=== PATIENT | female | born 1990 | race African-American/Black ===

== ENCOUNTER 2023-03-31 07:09 | Emergency (ER) | payer MEDICAID, SELFPAY ==
[2023-03-31 07:16] VITALS: BP 134/71; PULSE 73; RESP 18; TEMP 37.2; O2SAT 97; BMI 43.9
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
[2023-03-31 07:53] VITALS: BP 116/70; PULSE 81; O2SAT 98
== END 2023-03-31 07:54 | disposition home or self-care (01) ==
PROVIDERS: Emergency Provider Emergency Medicine
DX: S80.02XA Contusion of left knee, initial encounter (principal); V89.2XXA Person injured in unspecified motor-vehicle accident, traffic, initial encounter
CPT/HCPCS: 73562; 99283

== ENCOUNTER 2023-04-15 17:47 | Emergency (ER) | payer BC, MEDICAID, SELFPAY ==
[2023-04-15 17:49] VITALS: BP 152/97; PULSE 120; RESP 24; TEMP 36.9; O2SAT 96; BMI 42.0
--- NOTE | 2023-04-15 18:00 | XRR_ITS ---
PROCEDURE INFORMATION: Exam: XR Chest Exam date and time: 04/15/2023 6:21 PM Age: 33 years old Clinical indication: Dyspnea; Patient HX: Lt side facial swelling; Neck tenderness/swelling; SOB onset today TECHNIQUE: Imaging protocol: Radiologic exam of the chest. Views: 1 view. COMPARISON: No relevant prior studies available. FINDINGS: Lungs: Peribronchial thickening. No consolidation. Pleural spaces: Unremarkable. No pleural effusion. No pneumothorax. Heart/Mediastinum: Unremarkable. No cardiomegaly. Bones/joints: Unremarkable. XR/XR chest 1V portable [id number] IMPRESSION: Peribronchial thickening suggestive of an infectious or inflammatory bronchitis.
[2023-04-15 18:23] LABS: Basophils # 0.1 10^3/uL (0.0-0.1); Basophils % 0.5 %; Eosinophils # 0.3 10^3/uL (0.0-0.8); Eosinophils % 2.9 %; Hematocrit 41.7 % (36-47); Lymphocytes # 2.5 10^3/uL (0.8-4.8); Lymphocytes % 25.1 %; Mean Corpuscular HGB Conc 33.3 g/dL (30-55); Mean Corpuscular Hemoglobin 28.6 pg (27-33); Mean Corpuscular Volume 85.8 fl (85-98); Monocytes # 0.7 10^3/uL (0.2-0.9); Monocytes % 7.1 %; Neutrophils # 6.46 10^3/uL (1.8-7.7); Neutrophils % 64.2 %; Nucleated Red Blood Cells % 0 %; Platelet Count 270 10^3/cmm (157-399); Red Blood Count 4.86 10^6/uL (3.85-5.65); Red Cell Distribution Width 12.8 % (12.1-15.1); White Blood Count 10.07 10^3/uL (3.29-11.43)
[2023-04-15 18:40] VITALS: BP 135/96; PULSE 68; RESP 15; O2SAT 99
[2023-04-15 18:40] LABS: Alanine Aminotransferase 16 U/L (0-33); Albumin Level 4.2 g/dL (3.5-5.2); Alkaline Phosphatase 72 U/L (35-105); Anion Gap 15.8 (5-19); Aspartate Amino Transferase 10 U/L (0-32); Blood Urea Nitrogen 19 mg/dL (6-20); Calcium 9.5 mg/dL (8.5-10.5); Carbon Dioxide 25 mmol/L (22-29); Chloride 103 mmol/L (98-107); Globulin 3.5 g/dL (1.3-4.6); Glomerular Filtration Rate 101.2 mL/min (90-130); Glucose 91 mg/dL (65-115); Osmolality Calculated 292 mOsm/kg (285-295); Potassium 3.8 mmol/L (3.5-5.1); Sodium 140 mmol/L (136-145); Total Bilirubin 0.2 mg/dL (0.15-1.2); Total Protein 7.7 g/dL (6.6-8.7)
--- NOTE | 2023-04-15 19:21 | CTR_ITS ---
PROCEDURE INFORMATION: Exam: CT Neck With Contrast Exam date and time: 04/15/2023 8:05 PM Age: 33 years old Clinical indication: Dysphagia / difficulty swallowing and other: Left facial swelling; Patient HX: Left facial swelling with dysphagia; Additional info: Pain, painful swallowing, difficulty swallowing, facial swelling- TECHNIQUE: Imaging protocol: Computed tomography of the neck with contrast. Radiation optimization: All CT scans at this facility use at least one of these dose optimization techniques: automated exposure control; mA and/or kV adjustment per patient size (includes targeted exams where dose is matched to clinical indication); or iterative reconstruction. Contrast material: OMNI 350; Contrast volume: 100 ml; Contrast route: INTRAVENOUS (IV); COMPARISON: CR (CHEST, ) 04/15/2023 6:21 PM RADIATION DOSE METRICS: Total DLP (mGy-cm): 594.83 FINDINGS: Paranasal sinuses: Mild left maxillary sinus mucosal thickening. Dental: Multiple carious teeth bilaterally and left maxillary premolar periapical lucencies, the 2nd showing anterior bony disruption and thinning of the 1st without definite disruption. No clear communication with the maxillary sinus. Pharynx: Unremarkable. No significant tonsillar enlargement. Larynx: Unremarkable. Epiglottis is normal. Prevertebral and retropharyngeal spaces: Unremarkable. Salivary glands: Normal. Glands are normal in size. Thyroid: Normal. No enlarged or calcified nodules. Lymph nodes: Unremarkable. No lymphadenopathy. Trachea: Visualized trachea is unremarkable. Lungs: Unremarkable as visualized. Bones/joints: Unremarkable. No acute fracture. Soft tissues: Asymmetric left facial soft tissue swelling with subcutaneous graying/stranding and mild dermal thickening as well as infiltration of the propulsion engineer space. Just superficial to the left maxillary 2nd premolar periapical lucency that shows focal disruption anteriorly is a 1.3 cm hypodense collection with thickened soft tissue rim, axial image 27 of series 4 and sagittal image [address]/CT neck w con* [id number] IMPRESSION: 1. Constellation of findings favored to represent odontogenic infection involving the left propulsion engineer space and superficial soft tissues with suggested 1.3 cm premaxillary abscess arising from left maxillary 2nd premolar. 2. Mild left maxillary sinus disease. No communication with above periapical lucencies to suggest odontogenic etiology.
[2023-04-15] MEDS: iohexol 350 mg/mL 500 mL Btl (per mL) IV (20:10)
[2023-04-15 20:30] VITALS: BP 141/103; PULSE 73; RESP 18; O2SAT 98
[2023-04-15] MEDS: metoclopramide 5 mg/mL SDV 2 mL 10 MG IVP (20:33)
[2023-04-15] MEDS: morphine 4 mg/mL SDV 1 mL IVP (20:36)
--- NOTE | 2023-04-15 20:40 | ED_ITS ---
Documented by User: RICHELLE Vargas 04/16/23 01:38 HPI - SOB/Dyspnea 2 General: Chief Complaint: Shortness of Breath/Dyspnea Stated Complaint: sob, left side face swollen Time Seen by Provider: 04/15/23 18:47 Source: patient Mode of arrival: ambulatory Limitations: no limitations History of Present Illness: HPI Narrative: Patient presents to the emergency department today for evaluation treatment of acute swelling of her left face with increased pain and tightness in her upper throat. Patient reports that for the last 2 days she has had noticeable increase in swelling and redness developing to the left cheek area. Patient states that today she developed some tightness in her upper neck and felt like she was having difficulty breathing. Patient does have some poor dentition to the left upper jawline including a broken tooth but, has never had anything like this happen before. She denies any purulent drainage from the left nasal passage. She denies any left ear pain. She does admit to feeling like her throat is tight when she tries to swallow but, has been tolerating oral intake and salivary secretions. Review of Systems 2 General: Reports: 10 or more systems reviewed and unremarkable except in HPI and below [facility] ED 2 Female Reproductive History: Date of last menstrual period: 03/05/23 Physical Exam 2 Const: COMMON NORMALS: no acute distress, patient oriented x3 and alert HENMT: OTHER: Left TM is nonerythematous. No bulging. EAC is clear without purulent accumulation or swelling. No swelling behind the left ear. Patient is tender to the left upper and lower jaw. Patient has induration noted to the left maxillary region with erythema noted to the skin as well. No signs of active draining. Nasal passage on the left side is somewhat occluded but no signs of any drainage. Retropharynx is patent. Mucous membranes are moist. Patient has obvious broken tooth noted to the left upper jawline without signs of any active draining appreciated. Eye: COMMON NORMALS: Equal, round and reactive pupils present, EOMs intact bilaterally and conjunctivae normal CONJUNCTIVA: Yes conjunctivae normal P UPIL: Yes Equal, round and reactive pupils present OTHER: Patient has full range of motion to the EOMs without signs of entrapment. Neck/C-Spine: COMMON NORMALS: no JVD Lymph: LYMPHATIC: no lymphadenopathy noted Resp: COMMON NORMALS: normal respiratory effort, No retractions and No use of accessory muscles Cardio: COMMON NORMALS: no JVD and regular rate RATE: regular rate : COMMON NORMALS: Yes no CVA tenderness BLADDER/KIDNEY EXAM: Yes no CVA tenderness Back/Pelvis: COMMON NORMALS: no CVA tenderness, thoracic and lumbar spine normal to inspection and thoraco-lumbar ROM normal Extremity: COMMON NORMALS: normal to inspection, full ROM and no pedal edema Neuro: COMMON NORMALS: patient oriented x3 SENSORIUM/ORIENTATION: Yes alert Skin: COMMON NORMALS: no rashes or lesions noted and turgor normal GENERAL SKIN EXAM: no rashes or lesions noted and turgor normal Course 2 Vital Signs: Vital signs: Vital Signs Temperature 98.5 F 04/15/23 17:49 Pulse Rate 73 04/15/23 20:30 Respiratory Rate 18 04/15/23 20:30 Blood Pressure 141/103 04/15/23 20:30 Pulse Oximetry 98 04/15/23 20:30 Oxygen Delivery Me thod Room Air 04/15/23 20:30 MDM - SOB/Dyspnea Medical Decision Making Patient presents to the ER today for swelling and redness and tenderness to his left cheek. Given the patient's complaints we did perform a CT of her face and neck. Radiology indicated no concerns of any airway obstruction or deep tissue infection of the neck. However, patient does have findings of a deep abscess stemming from the left maxillary second premolar. I spoke with Dr. Brand. Patient will most likely have to have evaluation by a dentist for the molar removal. It is possible they may want to send her onto a oral surgeon but he indicated patient could most likely start with a local dentist. Patient was treated with antibiotic here in the emergency department here [facility]. She was given an acute dosing of pain medication as well. Prescriptions for continued antibiotic therapy, NSAID, and a probiotic were sent to her pharmacy to be picked up and continued in the morning. Discussed with her the importance of getting in with a dentist as the location of the abscess seems to be due to a dental infection. However, return precautions were given including any issues regarding breathing or swallowing. Patient verbalized understanding and agreement to treatment plan. Differential Diagnosis Unlikely acute exacerbation of chronic obstructive airways disease, congestive heart failure, community acquired pneumonia, asthma with exacerbation or pulmonary embolism Lab Data 04/15/23 18:17 04/15/23 18:17 Labs/Radiology: Radiology Impressions Chest X-Ray 04/15/23 18:00 IMPRESSION: Peribronchial thickening suggestive of an infectious or inflammatory bronchitis. Neck CT 04/15/23 19:21 IMPRESSION: 1. Constellation of findings favored to represent odontogenic infection involving the left greige goods inspector space and superficial soft tissues with suggested 1.3 cm premaxillary abscess arising from left maxillary 2nd premolar. 2. Mild left maxillary sinus disease. No communication with above periapical lucencies to suggest odontogenic etiology. Laboratory Results WBC 10.07 10^3/uL (3.29-11.43) 04/15/23 18:17 RBC 4.86 10^6/uL (3.85-5.65) 04/15/23 18:17 Hgb 13.90 g/dL (11.27-16.99) 04/15/23 18:17 Hct 41.7 % (36-47) 04/15/23 18:17 MCV 85.8 fl (85-98) 04/15/23 18:17 MCH 28.6 pg (27-33) 04/15/23 18:17 MCHC 33.3 g/dL (30-55) 04/15/23 18:17 RDW 12.8 % (12.1-15.1) 04/15/23 18:17 Plt Count 270 10^3/cmm (157-399) 04/15/23 18:17 MPV 10.0 fL (7.4-10.4) 04/15/23 18:17 Neut % (Auto) 64.2 % 04/15/23 18:17 Lymph % (Auto) 25.1 % 04/15/23 18:17 Juncos % (Auto) 7.1 % 04/15/23 18:17 Eos % (Auto) 2.9 % 04/15/23 18:17 Baso % (Auto) 0.5 % 04/15/23 18:17 Neut # (Auto) 6.46 10^3/uL (1.8-7.7) 04/15/23 18:17 Lymph # (Auto) 2.5 10^3/uL (0.8-4.8) 04/15/23 18:17 Juncos # (Auto) 0.7 10^3/uL (0.2-0.9) 04/15/23 18:17 Eos # (Auto) 0.3 10^3/uL (0.0-0.8) 04/15/23 18:17 Baso # (Auto) 0.1 10^3/uL (0.0-0.1) 04/15/23 18:17 Nucleated RBC % (auto) 0 % 04/15/23 18:17 Nucleated RBCs # 0.0 /100WBC 04/15/23 18:17 Sodium 140 mmol/L (136-145) 04/15/23 18:17 Potassium 3.8 mmol/L (3.5-5.1) 04/15/23 18:17 Chloride 103 mmol/L (98-107) 04/15/23 18:17 Carbon Dioxide 25 mmol/L (22-29) 04/15/23 18:17 Anion Gap 15.8 (5-19) 04/15/23 18:17 BUN 19 mg/dL (6-20) 04/15/23 18:17 Creatinine 0.8 mg/dL (0.5-0.9) 04/15/23 18:17 GFR Calculation 101.2 mL/min (90-130) 04/15/23 18:17 Glucose 91 mg/dL (65-115) 04/15/23 18:17 Calculated Osmolality 292 mOsm/kg (285-295) 04/15/23 18:17 Calcium 9.5 mg/dL (8.5-10.5) 04/15/23 18:17 Total Bilirubin 0.2 mg/dL (0.15-1.2) 04/15/23 18:17 AST 10 U/L (0-32) 04/15/23 18:17 ALT 16 U/L (0-33) 04/15/23 18:17 Alkaline Phosphatase 72 U/L (35-105) 04/15/23 18:17 Total Protein 7.7 g/dL (6.6-8.7) 04/15/23 18:17 Albumin 4.2 g/dL (3.5-5.2) 04/15/23 18:17 Globulin 3.5 g/dL (1.3-4.6) 04/15/23 18:17 All radiology interpretation(s) finalized by discharge Discharge Plan Discharge Patient Disposition: Home Clinical Impression: Abscess, dental Sinusitis, acute maxillary Qualifiers: Recurrence: not specified as recurrent Qualified Code(s): J01.00 - Acute maxillary sinusitis, unspecified Condition: Stable Prescriptions: New clindamycin HCl 300 mg capsule 300 mg PO Q6H 10 Days Qty: 40 0RF Bifidobacterium infantis 4 mg capsule 4 mg PO DAILY Qty: 14 0RF naproxen 500 mg tablet 500 mg PO BID PRN (Reason: pain) Qty: 20 0RF Discharge Orders: Discharge ED (Routine); Ordered 04/15/23 Ordered By: Bren Lima Discharge Diet: Advance as tolerated Discharge Activity: Increase activity as tolerated Patient Instructions: Dental Abscess (ED) Activity Restrictions/Additional Instructions: Examination today reveals a deep abscess up against the root of your left upper molar causing the swelling in your cheek. You do have signs of a sinus infection on that side as well but, your acute symptoms are due to the dental infection. The scan of your throat shows no swelling or concerns for occlusion. We started you on antibiotics tonight. I sent a prescription for continued antibiotics to the pharmacy on your behalf as well as medication to help with pain. The antibiotics provided to you are very strong and can cause issues with loose stools/diarrhea. I have also provided you a prescription for a probiotic to be taken while you are on the clindamycin to help prevent GI upset and loose stool. It will be essential that you get into see a dentist as soon as possible as the antibiotic can help prevent the spread of the infection but, may not fully treat the abscess. We recommend seeing a dentist for definitive management and care of your dental infection. If for any reason you continue to have facial swelling, begin having any visual changes, develop fever, or are unable to swallow liquids including your own saliva you need to return back here to the emergency department. Coding Level of Care Code ED Derrick Boat Operator for Chg Fwd Documented by User: Andrea Brand, 04/16/23 14:37 HPI - SOB/Dyspnea 2 General: Chief Complaint: Shortness of Breath/Dyspnea Stated Complaint: sob, left side face swollen Time Seen by Provider: 04/15/23 18:47 Course 2 Vital Signs: Vital signs: Vital Signs Temperature 98.5 F 04/15/23 17:49 Pulse Rate 73 04/15/23 20:30 Respiratory Rate 18 04/15/23 20:30 Blood Pressure 141/103 04/15/23 20:30 Pulse Oximetry 98 04/15/23 20:30 Oxygen Delivery Me thod Room Air 04/15/23 20:30 MDM - SOB/Dyspnea Medical Decision Making Patient presents to the ER today for swelling and redness and tenderness to his left cheek. Given the patient's complaints we did perform a CT of her face and neck. Radiology indicated no concerns of any airway obstruction or deep tissue infection of the neck. However, patient does have findings of a deep abscess stemming from the left maxillary second premolar. I spoke with Dr. Brand. Patient will most likely have to have evaluation by a dentist for the molar removal. It is possible they may want to send her onto a oral surgeon but he indicated patient could most likely start with a local dentist. Patient was treated with antibiotic here in the emergency department here [facility]. She was given an acute dosing of pain medication as well. Prescriptions for continued antibiotic therapy, NSAID, and a probiotic were sent to her pharmacy to be picked up and continued in the morning. Discussed with her the importance of getting in with a dentist as the location of the abscess seems to be due to a dental infection. However, return precautions were given including any issues regarding breathing or swallowing. Patient verbalized understanding and agreement to treatment plan. This patient was originally seen by Mrs. Clarence PA-C. I agree with her history, evaluation, and management. Lab Data 04/15/23 18:17 04/15/23 18:17 Labs/Radiology: Radiology Impressions Chest X-Ray 04/15/23 18:00 IMPRESSION: Peribronchial thickening suggestive of an infectious or inflammatory bronchitis. Neck CT 04/15/23 19:21 IMPRESSION: 1. Constellation of findings favored to represent odontogenic infection involving the left greige goods inspector space and superficial soft tissues with suggested 1.3 cm premaxillary abscess arising from left maxillary 2nd premolar. 2. Mild left maxillary sinus disease. No communication with above periapical lucencies to suggest odontogenic etiology. Laboratory Results WBC 10.07 10^3/uL (3.29-11.43) 04/15/23 18:17 RBC 4.86 10^6/uL (3.85-5.65) 04/15/23 18:17 Hgb 13.90 g/dL (11.27-16.99) 04/15/23 18:17 Hct 41.7 % (36-47) 04/15/23 18:17 MCV 85.8 fl (85-98) 04/15/23 18:17 MCH 28.6 pg (27-33) 04/15/23 18:17 MCHC 33.3 g/dL (30-55) 04/15/23 18:17 RDW 12.8 % (12.1-15.1) 04/15/23 18:17 Plt Count 270 10^3/cmm (157-399) 04/15/23 18:17 MPV 10.0 fL (7.4-10.4) 04/15/23 18:17 Neut % (Auto) 64.2 % 04/15/23 18:17 Lymph % (Auto) 25.1 % 04/15/23 18:17 Juncos % (Auto) 7.1 % 04/15/23 18:17 Eos % (Auto) 2.9 % 04/15/23 18:17 Baso % (Auto) 0.5 % 04/15/23 18:17 Neut # (Auto) 6.46 10^3/uL (1.8-7.7) 04/15/23 18:17 Lymph # (Auto) 2.5 10^3/uL (0.8-4.8) 04/15/23 18:17 Juncos # (Auto) 0.7 10^3/uL (0.2-0.9) 04/15/23 18:17 Eos # (Auto) 0.3 10^3/uL (0.0-0.8) 04/15/23 18:17 Baso # (Auto) 0.1 10^3/uL (0.0-0.1) 04/15/23 18:17 Nucleated RBC % (auto) 0 % 04/15/23 18:17 Nucleated RBCs # 0.0 /100WBC 04/15/23 18:17 Sodium 140 mmol/L (136-145) 04/15/23 18:17 Potassium 3.8 mmol/L (3.5-5.1) 04/15/23 18:17 Chloride 103 mmol/L (98-107) 04/15/23 18:17 Carbon Dioxide 25 mmol/L (22-29) 04/15/23 18:17 Anion Gap 15.8 (5-19) 04/15/23 18:17 BUN 19 mg/dL (6-20) 04/15/23 18:17 Creatinine 0.8 mg/dL (0.5-0.9) 04/15/23 18:17 GFR Calculation 101.2 mL/min (90-130) 04/15/23 18:17 Glucose 91 mg/dL (65-115) 04/15/23 18:17 Calculated Osmolality 292 mOsm/kg (285-295) 04/15/23 18:17 Calcium 9.5 mg/dL (8.5-10.5) 04/15/23 18:17 Total Bilirubin 0.2 mg/dL (0.15-1.2) 04/15/23 18:17 AST 10 U/L (0-32) 04/15/23 18:17 ALT 16 U/L (0-33) 04/15/23 18:17 Alkaline Phosphatase 72 U/L (35-105) 04/15/23 18:17 Total Protein 7.7 g/dL (6.6-8.7) 04/15/23 18:17 Albumin 4.2 g/dL (3.5-5.2) 04/15/23 18:17 Globulin 3.5 g/dL (1.3-4.6) 04/15/23 18:17 Discharge Plan Discharge Patient Disposition: Home Clinical Impression: Abscess, dental Sinusitis, acute maxillary Qualifiers: Recurrence: not specified as recurrent Qualified Code(s): J01.00 - Acute maxillary sinusitis, unspecified Condition: Stable Prescriptions: New clindamycin HCl 300 mg capsule 300 mg PO Q6H 10 Days Qty: 40 0RF Bifidobacterium infantis 4 mg capsule 4 mg PO DAILY Qty: 14 0RF naproxen 500 mg tablet 500 mg PO BID PRN (Reason: pain) Qty: 20 0RF Discharge Orders: Discharge ED (Routine); Ordered 04/15/23 Ordered By: Bren Lima Discharge Diet: Advance as tolerated Discharge Activity: Increase activity as tolerated Patient Instructions: Dental Abscess (ED) Activity Restrictions/Additional Instructions: Examination today reveals a deep abscess up against the root of your left upper molar causing the swelling in your cheek. You do have signs of a sinus infection on that side as well but, your acute symptoms are due to the dental infection. The scan of your throat shows no swelling or concerns for occlusion. We started you on antibiotics tonight. I sent a prescription for continued antibiotics to the pharmacy on your behalf as well as medication to help with pain. The antibiotics provided to you are very strong and can cause issues with loose stools/diarrhea. I have also provided you a prescription for a probiotic to be taken while you are on the clindamycin to help prevent GI upset and loose stool. It will be essential that you get into see a dentist as soon as possible as the antibiotic can help prevent the spread of the infection but, may not fully treat the abscess. We recommend seeing a dentist for definitive management and care of your dental infection. If for any reason you continue to have facial swelling, begin having any visual changes, develop fever, or are unable to swallow liquids including your own saliva you need to return back here to the emergency department. Coding Level of Care Code ED Derrick Boat Operator for Edilberto Gallegos
[2023-04-15] MEDS: clindamycin 150 mg Capsule 300 MG PO (21:37)
== END 2023-04-15 21:41 | disposition home or self-care (01) ==
PROVIDERS: Emergency Medicine; Emergency Provider Physician Assistant
DX: J01.00 Acute maxillary sinusitis, unspecified (principal); K04.7 Periapical abscess without sinus
CPT/HCPCS: 36415; 70491; 71045; 80053; 85025; 96374; 96375; 99285; J2270; J2765; Q9967

== ENCOUNTER 2023-11-05 18:08 | Emergency (ER) | payer MEDICAID, SELFPAY ==
--- NOTE | 2023-11-05 18:09 | XRR_ITS ---
PROCEDURE INFORMATION: Exam: XR Right Knee Exam date and time: 11/05/2023 6:15 PM Age: 33 years old Clinical indication: Lower leg; Right; Patient HX: RT ankle/lower ext pain post fall x 2 weeks ago TECHNIQUE: Imaging protocol: Radiologic exam of the right knee. Views: 3 views. COMPARISON: CR XR ankle RT min 3V* [id number] 11/05/2023 6:15 PM FINDINGS: Bones/joints: Normal. Soft tissues: Normal. XR/XR knee RT 3V* [id number] IMPRESSION: No acute findings.
--- NOTE | 2023-11-05 18:09 | XRR_ITS ---
PROCEDURE INFORMATION: Exam: XR Right Tibia and Fibula Exam date and time: 11/05/2023 6:15 PM Age: 33 years old Clinical indication: Lower leg; Right; Patient HX: RT ankle/lower ext pain post fall x 2 weeks ago TECHNIQUE: Imaging protocol: Radiologic exam of the right tibia and fibula. Views: 2 views. COMPARISON: CR XR ankle RT min 3V* [id number] 11/05/2023 6:15 PM FINDINGS: Bones/joints: No visualized acute fracture. Soft tissues: Chronic appearing ossified densities in the soft tissues distal to the medial and lateral malleoli. XR/XR tibia fibula RT 2V [id number] IMPRESSION: Chronic appearing ossified densities in the soft tissues distal to the medial and lateral malleoli may represent nonunion of chronic fractures. No acute fracture visualized.
--- NOTE | 2023-11-05 18:09 | XRR_ITS ---
PROCEDURE INFORMATION: Exam: XR Right Ankle Exam date and time: 11/05/2023 6:15 PM Age: 33 years old Clinical indication: Injury or trauma; Patient HX: RT ankle/lower ext pain post fall x 2 weeks ago TECHNIQUE: Imaging protocol: Radiologic exam of the right ankle. Views: 3 or more views. COMPARISON: CR XR tibia fibula RT 2V [id number] 11/05/2023 6:15 PM FINDINGS: Bones/joints: Enthesophytes are present off the os calcis at the Achilles insertion and plantar fascia origin. Enthesophytes are present off the os calcis at the Achilles insertion and plantar fascia origin. Soft tissues: There are chronic appearing ossified densities in the soft tissues distal to the medial and lateral malleoli. XR/XR ankle RT min 3V* [id number] IMPRESSION: Chronic appearing ossified densities in the soft tissues distal to the medial and lateral malleoli may represent nonunion of chronic fractures. No acute fracture visualized.
[2023-11-05 18:14] VITALS: BP 129/84; PULSE 111; RESP 16; TEMP 36.7; O2SAT 96; BMI 47.5
--- NOTE | 2023-11-05 18:56 | ED_ITS ---
HPI - Extremity Problem General: Chief complaint: Extremity Injury, Lower Stated complaint: right ankle injury, into leg Time Seen by Provider: 11/05/23 18:55 History of Present Illness: 33-year-old female comes in today with r ight ankle injury. Patient reports 2 weeks ago she had twisted her right ankle. Patient reports continued pain and discomfort to the ankle. Patient is wearing flip-flops on the exam. Mild tenderness and swelling is noted to the lateral malleus. Related Data Previous Rx's Medication Instructions Recorded Bifidobacterium infantis 4 mg 4 mg PO DAILY #14 caps 04/15/23 capsule naproxen 500 mg tablet 500 mg PO BID PRN pain #20 tabs 04/15/23 Allergies Allergy/AdvReac Type Severity Reaction Status Date / Time No Known Allergies Allergy Verified 11/05/23 18:13 Review of Systems General: Reports: 10 or more systems reviewed and unremarkable except in HPI and below Physical Exam Const: COMMON NORMALS: alert HENMT: COMMON NORMALS: normocephalic HEAD & SCALP: normocephalic Neck/C-Spine: COMMON NORMALS: full ROM Resp: COMMON NORMALS: normal respiratory effort and clear to auscultation bilaterally AUSCULTATION: clear to auscultation bilaterally Cardio: COMMON NORMALS: regular rate RATE: regular rate Back/Pelvis: COMMON NORMALS: thoracic and lumbar spine normal to inspection Extremity: RIGHT LOWER EXTREMITY: Yes foot & digits (Lateral tenderness mild swelling) Neuro: SENSORIUM/ORIENTATION: Yes alert Skin: COMMON NORMALS: turgor normal GENERAL SKIN EXAM: turgor normal Course Vital Signs: Vital signs: Vital Signs Temperature 98.0 F 11/05/23 18:14 Pulse Rate 111 H 11/05/23 18:14 Respiratory Rate 16 11/05/23 18:14 Blood Pressure 129/84 11/05/23 18:14 Pulse Oximetry 96 11/05/23 18:14 MDM - Extremity (Nontraumatic) Medical Decision Making 33-year-old female comes in today with injury to the right ankle x 2 weeks. Patient reports continued pain and discomfort. Patient appears nontoxic. Patient has some mild swelling. Differential diagnosis includes fracture, sprain, tendinitis, ligament injury. X-ray noted no acute fractures. Reviewed exam with patient with recommendations for treatment and follow-up. Patient requested follow-up with podiatry for further evaluation due to the persistence of pain. Agreed with plan and need for follow-up. Patient was put in a stirrup splint for comfort. Lab Data Radiology Impressions Ankle X-Ray 11/05/23 18:09 IMPRESSION: Chronic appearing ossified densities in the soft tissues distal to the medial and lateral malleoli may represent nonunion of chronic fractures. No acute fracture visualized. Knee X-Ray 11/05/23 18:09 IMPRESSION: No acute findings. Tibia/Fibula X-Ray 11/05/23 18:09 IMPRESSION: Chronic appearing ossified densities in the soft tissues distal to the medial and lateral malleoli may represent nonunion of chronic fractures. No acute fracture visualized. All radiology interpretation(s) finalized by discharge Discharge Plan Discharge Patient Disposition: Home Clinical Impression: Ankle sprain and strain Condition: Stable Prescriptions: No Action Bifidobacterium infantis 4 mg capsule 4 mg PO DAILY Qty: 14 0RF naproxen 500 mg tablet 500 mg PO BID PRN (Reason: pain) Qty: 20 0RF Discharge Orders: Discharge ED (Routine); Ordered 11/05/23 Ordered By: Adarsh Duncan Referrals: Pauline Delgado DO [Primary Care Provider] - Discharge Diet: Usual diet Discharge Activity: Increase activity as tolerated Patient Instructions: Ankle Sprain (ED) Stand Alone Forms: Work/School Release Coding Level of Care Code ED Sack Department Supervisor for Edilberto Gallegos
--- NOTE | 2023-11-06 11:56 | DCPLANNER ---
message podiatry for er f/u
== END 2023-11-05 20:49 | disposition home or self-care (01) ==
PROVIDERS: Emergency Provider Nurse Practitioner Family; PCP Family Medicine
DX: S93.401A Sprain of unspecified ligament of right ankle, initial encounter (principal); S96.911A Strain of unspecified muscle and tendon at ankle and foot level, right foot, initial encounter; X50.1XXA Overexertion from prolonged static or awkward postures, initial encounter
CPT/HCPCS: 73562; 73590; 73610; 99284

== ENCOUNTER 2024-02-19 07:55 | Outpatient (CLI) | payer MEDICAID, SELFPAY ==
--- NOTE | 2024-02-19 08:00 | MR_ITS ---
WS: [id number] MRI RIGHT ANKLE WITHOUT CONTRAST. COMPARISON: 11/05/2023 Multiplanar, multisequence imaging is performed without contrast. Very subtle marrow edema in the distal fibula. No fracture. No marrow edema or fracture in the tibia. Increased T2 and STIR signal in the distal cuboid and the proximal fourth metatarsal. Mild narrowing at the articulation between the cuboid and the fourth metatarsal. No marrow edema in the calcaneus. Well-corticated osseous fragment distal to the fibula may be from an old injury. Normal syndesmosis. Anterior inferior tibiofibular ligaments are intact. There is a fluid gap at the attachment of the anterior talofibular ligament to the talus. The posterior talofibular ligament is n ormal. Deltoid ligament is normal. Normal calcaneofibular ligament. Normal sinus Tarsi. Normal Achill es tendon. Peroneal tendons are normal in signal and course and size. Flexor hallucis longus and the flexor digi torum longus and the posterior tibial tendons are normal. Anterior extensor tendons are normal. MR/MR ankle RT wo con* [id number] IMPRESSION: 1. Torn anterior talofibular ligament. There is a fluid gap at the attachment of the ligament to the talus. 2. Marrow edema and degenerative joint space narrowing at the cuboid and fourt h metatarsal articulation. 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 3. No tendon abnormality.
== END 2024-02-19 07:56 | disposition home or self-care (01) ==
LOC: RAD 07:56
PROVIDERS: PCP Family Medicine; Visit Provider Podiatrist Foot & Ankle Surgery
DX: S93.431A Sprain of tibiofibular ligament of right ankle, initial encounter (principal); S99.911A Unspecified injury of right ankle, initial encounter; M25.371 Other instability, right ankle; X58.XXXA Exposure to other specified factors, initial encounter
CPT/HCPCS: 73721

== ENCOUNTER → 2024-02-28 12:53 | Outpatient (BNVA) | payer MEDICAID, SELFPAY | PROVIDERS: PCP Family Medicine; Visit Provider Nurse Practitioner Women's Health | DX: Z12.4 Encounter for screening for malignant neoplasm of cervix (principal) | CPT/HCPCS: 80053; 82306; 83036; 84443; 85025; 86592; 86705; 86706; 86709; 86803; 87340; 87624; 87806 ==

== ENCOUNTER 2024-06-07 10:06 | Day surgery (SDC) | payer MEDICAID, SELFPAY ==
[2024-06-07] VITALS (13 sets, daily range): BP systolic 104–136; BP diastolic 54–91; PULSE 76–102; RESP 13–26; TEMP 36.1–36.5; O2SAT 90–97
--- NOTE | 2024-06-07 | XR_ITS ---
WS: [id number] Exam: XR ankle RT 2V [id number] Date/Time of Exam: 06/07/2024 12:00 AM Reason For Exam: JENNIFER PICS Intraoperative AP and lateral images of the RIGHT foot and ankle are submitted. Images were obtained for intraoperative visualization purposes.
[2024-06-07] MEDS: sodium chloride 0.9% 1,000 ML 30 ML IV (10:56)
[2024-06-07 10:58] LABS: OR HCG Qualitative Urine Negative (Negative)
--- NOTE | 2024-06-07 11:16 | P.HPUD_ITS ---
Surgery/Procedure H&P Update DATE OF PROCEDURE: June 07, 2024 DATE H&P PERFORMED: 06/07/24 H&P UPDATE INFORMATION: I have reviewed H&P completed within last 30 days, I have examined patient prior to procedure, No changes to prior documentation and H&P is in [facility] EMR on date indicated PREOP DIAGNOSIS: Right lateral ankle instability PLANNED PROCEDURE: Operation Date: 06/07/24 11:55 Proposed Procedures p Brostrom Procedure Modified Bromarielle(Right) - Pedro Morillo DPM
--- NOTE | 2024-06-07 11:18 | P.ANESASSM_ITS ---
Pre-Anesthetic Assessment Height/Weight: Height 5 ft 2 in Weight 274 lb Temp Pulse Resp BP Pulse Ox O2 Del Method 97.4 F L 96 18 135/91 96 Room Air 06/07/24 10:51 06/07/24 10:51 06/07/24 10:51 06/07/24 10:51 06/07/24 10:51 06/07/24 10:52 Preop Diagnosis: Right lateral ankle instability Operation Date: 06/07/24 11:55 Proposed Procedures p Brostrom Procedure Modified Brostrom(Right) - MARY NicholsM Was Beta Demetra taken within 24 hours: N/A Was Clonidine taken within 24 hours: N/A Last intake: Intake Last Liquid Date 06/06/24 Last Liquid Time 21:30 Last Solid Date 06/06/24 Last Solid Time 21:30 Social No alcohol and No tobacco Exam alert, oriented x 3, clear to auscultation bilaterally and regular rate & rhythm Airway Submandibular: within normal limits Cervical ROM: within normal limits Mallampati: Class II Dentition: full Anesthetic Plan ASA status: 3 Anesthesia: General Other: No prior anesthesia history NPO since yesterday Patient has a history of asthma, controlled with inhalers Denies any cardiac issues METs greater than 4 test negative Plan for general anesthesia with peripheral nerve block Medications/Allergies Home Medications ?Medication ?Instructions ?Recorded ?Confirmed ?Last Taken ?Type ASO to right #1 ea 11/15/23 02/28/24 Unkn own Rx albuterol sulfate 90 mcg/actuation 2 inh inhalation QI D PRN Wheezing 11/15/23 06/07/24 06/07/24 History aerosol inhaler (Ventolin HFA) cholecalciferol (vitamin D3) 25 25 mcg PO DAILY #90 ca ps 02/29/24 06/07/24 0 06/06/24 Rx mcg (1,000 unit) capsule Allergies Allergy/AdvReac Type Severity Reaction Status Date / Time No Known Allergies Allergy Verified 02/28/24 13:26 Current Medications Generic Name Dose Route Start Last Admin Trade Name Freq PRN Reason Stop Dose Admin Sodium Chloride 1,000 mls @ 30 mls/hr 06/07/24 10:15 06/07/24 10:56 Sodium Chloride 0.9% IV 06/08/24 10:14 30 mls/hr .Q24H CARLITO Administration PFSH Anesthesia Family History Father Colon cancer Grandmother Ovarian cancer maternal Breast cancer paternal Grandfather Breast cancer Diabetes Denies family history of Heart disease Hypertension Uterine cancer Thyroid disease Stroke Social History Smoking and tobacco/nicotine status: former use of tobacco/nicotine (2014) Female Reproductive History Date of last menstrual period: 06/03/24 Data Anesthesia Cardiac Studies: No Data to Display
--- NOTE | 2024-06-07 11:18 | P.HP_ITS ---
Providers/Chief Complaint Primary Care Provider: Husam Shin MD Chief Complaint: [id number] History of Present Illness Ms. Hogan is an established 34 year old female patient here for follow up of her right grade 2 ankle sprain DOI 10/21/23. The patient is a 34-year-old female presenting with right ankle instability. Approximately six weeks prior, the issue was evaluated, revealing a propensity for the ankle to roll laterally, causing instability. The patient reported adhering to a regimen of basic at-home therapy, including exercises to enhance motion, strengthening, and balance. Despite these interventions, the patient indicates an incomplete resolution, acknowledging an increase in weight-bearing capability but ongoing inability to fully trust the ankle. The ankle remains prone to rolling, suggesting persistent instability. No mention was made of exacerbation with specific activities or alleviation beyond the completed home therapy. A brace was utilized as part of the treatment plan to provide additional support. Review of Systems Const: Denies: fever(s) or chills Card: Denies: chest pain or dyspnea on exertion Resp: Denies: dyspnea or productive cough GI: Denies: abdominal pain, nausea or vomiting : Denies: difficulty voiding Musc: Reports: limited range of motion; Denies: joint pain or joint swelling Skin/Breast: Denies: changes in skin color or dry skin Neuro: Denies: numbness in extremities or weakness in extremities Psych: Denies: anxiety [place]/Lymph: Denies: easy bruising or easy bleeding Medications/Allergies Home Medications ?Medication ?Instructions ?Recorded ?Confirmed ?Last Taken ?Type ASO to right #1 ea 11/15/23 02/28/24 Unkn own Rx albuterol sulfate 90 mcg/actuation 2 inh inhalation QI D PRN Wheezing 11/15/23 06/07/24 06/07/24 History aerosol inhaler (Ventolin HFA) cholecalciferol (vitamin D3) 25 25 mcg PO DAILY #90 ca ps 02/29/24 06/07/24 06/06/24 Rx mcg (1,000 unit) capsule Allergies Allergy/AdvReac Type Severity Reaction Status Date / Time No Known Allergies Allergy Verified 02/28/24 13:26 PFSH PFSH: Family History Father Colon cancer Grandmother Ovarian cancer maternal Breast cancer paternal Grandfather Breast cancer Diabetes Denies family history of Heart disease Hypertension Uterine cancer Thyroid disease Stroke Social History Smoking and tobacco/nicotine status: former use of tobacco/nicotine (2014) Female Reproductive History: Date of last menstrual period: 06/03/24 Vital Signs Vitals Signs: Last Vital Signs Temp 97.4 F L 06/07/24 10:51 Pulse 96 06/07/24 10:51 Resp 18 06/07/24 10:51 BP 135/91 06/07/24 10:51 Pulse Ox 96 06/07/24 10:51 O2 Del Method Room Air 06/07/24 10:52 Weight: Weight last 48 hrs Weight 274 lb Physical Exam Narrative: EXAM NARRATIVE: GENERAL: Patient is alert and oriented ?3 and in no acute distress. The following is a focused bilateral lower extremity exam. VASCULAR: Dorsalis pedis and posterior tibial arteries palpable +2. Capillary refill time less than 3 seconds to the distal hallux bilaterally. Calf is supple and nontender proximally and distally. Edema to the right lateral ankle. Pedal hair growth present. NEUROLOGICAL: Epicritic and protopathic sensations grossly intact to the lower extremities. +2 Achilles tendon reflex noted bilaterally. Negative Tinel sign upon percussion of lower extremity nerves. DERMATOLOGICAL: Mild ecchymosis to the right lateral ankle. No fracture blisters, no lacerations or abrasions, no open wounds to the lower extremities. MUSCULOSKELETAL: Tenderness elicited over the right anterior talofibular ligament and lateral ligament complex. Negative anterior drawer and negative talar tilt on right ankle. No pain at the left fifth metatarsal base or the right Lisfranc complex. No pain at the right medial malleolus. Smooth range of motion within the sagittal plane, right ankle. Right ankle inversion and eversion is guarded secondary to pain. No gross deformity or acute dislocation appreciated right ankle. CARDIOVASCULAR: S1, S2, normal rate, normal rhythm. Dorsalis pedis and posterior tibial arteries palpable. LUNGS: Clear to auscltation, no use of acessory muscles, no crackles or wheezes. A&P Assessment and plan (1) Ankle sprain and strain: (2) Right ankle instability: Plan 34-year-old female with a history of right ankle instability presenting with ongoing symptoms of ankle instability despite previous management with bracing and home-based exercises. The primary concern is the continued propensity of the ankle to roll and the patient's report of insufficient stability during ambulation. 1. Ankle Instability The patient exhibits signs of right ankle instability unresponsive to initial conservative treatment measures. MRI of the right ankle was performed 12-24 shows torn ATFL with a fluid gap I reviewed at length with the patient, the risks, potential complications, benefits, alternatives, expectations, and typical outcomes associated with the surgery. The risks and potential complications were explained in detail, including but not limited to infection, wound dehiscence or soft tissue complications, bleeding and hematoma, chronic edema, neuritis or nerve damage producing numbness or chronic pain, CRPS, failure to relieve pain or worsening pain, thick / painful / unsightly scar, limited motion / stiffness, malposition, delayed union, malunion, or nonunion, fracture, reaction to implants, anesthetic complications, venous thromboembolism, and deformity recurrence. I discussed the notion of no regrets with the patient as it pertains to complications and outcomes. The patient seemed to understand the nature of the proposed care and required convalescence. They asked appropriate questions, answered to their satisfaction. They are aware no guarantees can be made as to a satisfactory outcome and they understand there may be other possible unforeseen complications or outcomes not listed here that will be treated accordingly if they arise. There were no written or implied guarantees given to the patient. They gave informed consent to proceed. Patient wishes to proceed with modified Brostr?m right ankle will be outpatient scheduled 06/07/2024 PDMP PDMP Reviewed: Not Reviewed Coding Level of Care Code Acute Code for [facility] Diagnoses Ankle sprain and strain S93.409A; S96.919A Right ankle instability M25.371
[2024-06-07] MEDS: ceFAZolin 3,000 MG in sodium chloride 0.9% (100 ml) 100 ML 200 MG IV (11:23)
--- NOTE | 2024-06-07 11:38 | ANES.PROC ---
Anesthesia Procedures Procedure/Date: 06/07/24 Nerve Block ^: Nerve Block 1: Main Anesthesia: general anesthesia Time Out Performed: Yes Consent: requested by attending/covering physician and from patient Nerve block location: popliteal Anesthesia monitors applied: pulse oximetry, EKG, BP cuff and oxygen Nerve block position: supine Anesthetic Used: ropivicaine 0.5% Amount of anesthesia used (mL): 30 Ultrasound used to: recognize landmarks Nerve Stimulator Used?: Yes Interscalene/Femoral BLK: other needle (pjunk 4inch) Injection: neg aspiration of heme Patient Tolerated Procedure: well Complications: none Additional Comments: decadron 4mg added to block
--- NOTE | 2024-06-07 12:24 | W.PM.BPON ---
Date of Procedure: 06/02/23 Surgeon: Pedro Morillo DPM Communications Intern(s): Lore Procedure(s) performed: Modified Brostr?m, right ankle Findings of the procedure(s): Right ankle instability Estimated blood loss: 1 mL Specimen(s) removed: No specimens Post-operative diagnosis: Right lateral ankle instability and tear of right anterior talofibular ligament.
--- NOTE | 2024-06-07 12:25 | P.OP_ITS ---
Operative Report Date of procedure: June 07, 2024 Pre-op diagnosis: Injury of right ankle, sequela S99.911S Encounter type: sequela Right ankle instability M25.371 Sprain of anterior talofibular ligament of left ankle, subsequent encounter S93.492D Encounter type: subsequent encounter Post-op diagnosis: Injury of right ankle, sequela S99.911S Encounter type: sequela Right ankle instability M25.371 Sprain of anterior talofibular ligament of left ankle, subsequent encounter S93.492D Encounter type: subsequent encounter Procedure done: Right modified Brostr?m. CPT code 80137 Implants: Arthrex Brostr?m 2.0 internal brace 3-0 Vicryl 4-0 nylon Surgeon: Pedro Morillo DPM Supervisor Publications Production: Sasha Estimated blood loss: 1 mL 31 minutes IV fluids: See intraoperative documentation Urine output: None Complications: None Brief History: 34-year-old female with a history of right ankle instability presenting with ongoing symptoms of ankle instability despite previous management with bracing and home-based exercises. The primary concern is the continued propensity of the ankle to roll and the patient's report of insufficient stability during ambulation. 1. Ankle Instability The patient exhibits signs of right ankle instability unresponsive to initial conservative treatment measures. MRI of the right ankle was performed 12-24 shows torn ATFL with a fluid gap I reviewed at length with the patient, the risks, potential complications, benefits, alternatives, expectations, and typical outcomes associated with the surgery. The risks and potential complications were explained in detail, including but not limited to infection, wound dehiscence or soft tissue complications, bleeding and hematoma, chronic edema, neuritis or nerve damage producing numbness or chronic pain, CRPS, failure to relieve pain or worsening pain, thick / painful / unsightly scar, limited motion / stiffness, malposition, delayed union, malunion, or nonunion, fracture, reaction to implants, anesthetic complications, venous thromboembolism, and deformity recurrence. I discussed the notion of no regrets with the patient as it pertains to complications and outcomes. The patient seemed to understand the nature of the proposed care and required convalescence. They asked appropriate questions, answered to their satisfaction. They are aware no guarantees can be made as to a satisfactory outcome and they understand there may be other possible unforeseen complications or outcomes not listed here that will be treated accordingly if they arise. There were no written or implied guarantees given to the patient. They gave informed consent to proceed. Procedure: Under mild sedation patient was brought to the operating room and remained on the gurney in supine position. A timeout was performed. Anesthesia was administered by the anesthesia service. Of note left popliteal block was pe rformed preoperatively per anesthesia service. Well-padded pneumatic tourniquet was applied to the left. Left lower extremity was scrubbed, prepped and draped utilizing normal aseptic technique. Left foot and ankle were then exanguinated with an Esmarch bandage and tourniquet inflated to 250 mmHg. Attention was directed to bony landmarks of the left ankle consisting of lateral malleolus and fifth metatarsal as well as fourth metatarsal bases. A curvilinear incision was made over the distal fibula curving towards the fourth metatarsal base through skin with a #15 blade with dissection carried down through subcutaneous tissue to layer of retinaculum which was incised and tagged to be reapproximated later in the procedure, dissection was carried out surgically with a combination of sharp and blunt technique. Care was taken to retract and preserve neurovascular and tendinous structures. All bleeders were ligated and cauterized as necessary. The left anterior talofibular ligament was visualized and noted to be greater than 50% torn. This was debrided of its thickening and diseased portion of the ligament. Next a Arthrex 2.0 speed bridge was advanced into the lateral talar body utilizing the sinus tarsi guide utilizing a intraoperative C arm and K wire prior to drilling and implantation of bone anchor to verify excellent placement of the anchor without violating subtalar joint or ankle joint and in near anatomic position bone anchor was advanced and secured in the talar body. Fiber tack x 2 was inserted high and low at the distal fibula leading edge to perform a direct repair of the anterior talofibular ligament followed by securing of the internal brace within the fibula with ankle joint in neutral position and care taken not to over tighten the internal brace. All tails were trimmed and smooth range of motion was appreciated intraoperatively of negative anterior drawer negative talar tilt to the left ankle. Incision was irrigated with sterile saline solution and closed in layered fashion with retinaculum reapproximated utilizing 3-0 Vicryl subcutaneous tissue reapproximated 3-0 Vicryl and skin with 4-0 nylon. Dressing consisting of Xeroform sterile gauze Kerlix and James wrap followed by application of a cam boot to the left lower extremity. Tourniquet was deflated and a prompt hyperemic response is noted to the distal digits of the left foot. Patient tolerated the procedure and anesthesia well and was transferred to the PACU with vital signs stable and vascular status intact. Following a period of postoperative monitoring to be discharged home with home care instructions and scheduled follow-up.
[2024-06-07] MEDS: ondansetron 2 mg/ML SDV 2 mL 4 MG IVP ×2 (12:39→12:46)
[2024-06-07] MEDS: fentaNYL 50 mcg/mL INJ 2mL IVP (12:50)
--- NOTE | 2024-06-07 13:56 | ANE.PACU2 ---
Inpatient post-anesthesia follow up: Airway intact: Yes Vital signs: Temperature 97.1 F Pulse Rate 76 Respiratory Rate 16 Blood Pressure 120/67 Pulse Oximetry 95 Oxygen Delivery Me thod Room Air Oxygen Flow Rate 2 Fraction of Inspir ed Oxygen Hydration adequate: Yes Nausea and vomiting: No Pain level: 1 Mental status: Baseline
== END 2024-06-07 13:57 | disposition home or self-care (01) ==
PROVIDERS: Student in an Organized Health Care Education/Training Program; PCP Family Medicine; Visit Provider Podiatrist Foot & Ankle Surgery
PROC: (CPT 27698; principal; 2024-06-07 11:45)
DX: S93.492A Sprain of other ligament of left ankle, initial encounter (principal); X58.XXXA Exposure to other specified factors, initial encounter; M25.371 Other instability, right ankle; J45.909 Unspecified asthma, uncomplicated; Z87.891 Personal history of nicotine dependence
CPT/HCPCS: 27698; 73600; 76000; 81025; C1713; J0690; J1100; J2250; J2405; J2704; J3010; J7030; J9999

== ENCOUNTER → 2024-10-18 12:44 | Outpatient (BNVA) | payer MEDICAID, SELFPAY | PROVIDERS: PCP Family Medicine; Visit Provider Nurse Practitioner Women's Health | DX: N92.6 Irregular menstruation, unspecified (principal) | CPT/HCPCS: 82670; 83001; 83036; 83525; 84144; 84146; 84402; 84403; 84443 ==

== ENCOUNTER → 2024-10-29 08:07 | Outpatient (BNVA) | payer MEDICAID, SELFPAY | PROVIDERS: PCP Family Medicine; Visit Provider Nurse Practitioner Women's Health | DX: N92.6 Irregular menstruation, unspecified (principal) | CPT/HCPCS: 76830 ==